=== PATIENT | female | born 1990 | race Caucasian/White ===

== ENCOUNTER 2016-10-10 08:28 | Day surgery (SDC) | payer OTHER ==
[2016-10-10 09:13] VITALS: BMI 49.7
[2016-10-10] MEDS ORDERED: Propofol 10 mg/ml Inj (20 ML) ONE (11:32)
--- NOTE | 2016-10-10 11:33 | CP.SDSHP ---
Same Day Surgery H & P - History Proposed Procedure: EGD Pre-Op Diagnosis: SEE NOTES - Previous Medical/Surgical History Misc: Other Pain: 4.Moderate Pain - Allergies Allergies: Allergies No Known Allergies Allergy (Verified 07/31/13 15:10) - Physical Exam General Appearance: N Vital Signs: Vital Signs 10/10/16 09:31 Temperature 98.7 F Pulse Rate 80 Respiratory 16 Rate Blood Pressure 120/60 O2 Sat by Pulse 95 Oximetry Mental Status: Alert & Oriented x3 Neuro: WNL Heart: WNL Lungs: WNL GI: Other - {Optional Preform as Required} Breast: WNL Abdomen: Other Rectal: Other Integument: WNL : WNL Ortho: WNL ENT: WNL - Impression Pt. Evaluated Today:Candidate for Anesthesia & Procedure: Yes - Date & Time Time: 11:32 Short Stay Discharge - Short Stay Discharge Admitting Diagnosis/Reason for Visit: DYSPEPSIA Disposition: HOME/ ROUTINE
[2016-10-10] MEDS ORDERED: Belladonna-Phenobarbital PO STA (11:34)
[2016-10-10] MEDS ORDERED: Pantoprazole 40 mg EC Tab PO STA (11:34)
[2016-10-10] MEDS ORDERED: Lactated Ringer's 1,000 ML IV SCH (11:45)
[2016-10-10 12:08] VITALS: O2SAT 100
[2016-10-10 13:08] VITALS: BP 116/62; PULSE 83; RESP 18; TEMP 98.7
== END 2016-10-10 12:42 | disposition home or self-care (01) ==
LOC: C.ENDO 08:28
PROVIDERS: ATTEND Specialist
DX: R10.13 Epigastric pain (principal); K44.9 Diaphragmatic hernia without obstruction or gangrene; K21.0 Gastro-esophageal reflux disease with esophagitis
CPT/HCPCS: 43239; 84703; 88305; 88342; J2704; J7120